=== PATIENT | female | born 1960 | race African-American/Black ===

== ENCOUNTER → 2016-10-25 | Outpatient (CLI) | payer MEDICAID ==
[2016-06-08 13:51] VITALS: BP 123/71
--- NOTE | 2016-10-30 06:21 | MG ---
Examination: Bilateral screening mammogram. Clinical history: Routine screening. Technique: Digital CC and MLO views of both breasts were obtained. Computer aided detection analysis was performed and used during the interpretation. Comparison: None available. Findings: The breasts are composed of scattered fibroglandular densities. Benign-appearing calcifications and vascular calcifications are noted in the breasts bilaterally. There is a 5 mm oval density present in the superior aspect of the left breast in the posterior dept h, possibly representing a small axillary lymph node. Additional imaging evaluation is recommended, with a spot compression magnification view in the MLO projection, a lateral view, an exaggerated CC view of the left breast and a left breast ultrasound. No suspicious mass, area of architectural distortion or suspicious cluster of microcalcifications is noted in the right breast. Impression: 1. Density in the left breast, as described above. BI-RADS category 0 (ZERO) - ASSESSMENT INCOMPLETE; ADDITIONAL IMAGING IS NEEDED. Recommend immediate recall for additional imaging evaluation, as described above. Diagnostic CAD was utilized and reviewed. * 0 (ZERO) - ASSESSMENT INCOMPLETE; ADDITIONAL IMAGING IS NEEDED. * 0C - ASSESSMENT INCOMPLETE, NEEDS ADDITIONAL IMAGING EVALUATION AND/OR PRIOR MAMMOGRAMS FOR COMPAR HÉCTOR. * 1/ (ONE) - NEGATIVE. * 2/II (TWO) - BENIGN FINDINGS. * 3/III (THREE) - PROBABLY BENIGN FINDING; SHORT INTERVAL FOLLOW-UP SUGGESTED. * 4/IV (FOUR) - SUSPICIOUS ABNORMALITY; BIOPSY SHOULD BE CONSIDERED. * 5/V - HIGHLY SUSPICIOUS OF MALIGNANCY; BIOPSY SHOULD BE PERFORMED. * 6/IV - KNOWN BIOPSY PROVEN MALIGNANCY-APPROPRIATE ACTION SHOULD BE TAKEN. A NEGATIVE X-RAY REPORT SHOULD NOT DELAY BIOPSY IF A DOMINANT OR CLINICALLY SUSPICIOUS MASS IS PRESENT; 4 TO 8 PERCENT OF CANCERS ARE NOT IDENTIFIED BY X-RAY. A NEGATIVE REPORT MAY REINFORCE THE CLINICAL IMPRESSION. ADENOSIS AND DENSE BREASTS MAY OBSCURE AN UNDERLYING NEOPLASM. Reported By:
== END ==
LOC: RAD 13:48
PROVIDERS: ATTEND Obstetrics & Gynecology
DX: Z12.31 Encounter for screening mammogram for malignant neoplasm of breast (principal)
CPT/HCPCS: 77067

== ENCOUNTER → 2016-12-26 | Outpatient (CLI) | payer MEDICAID ==
[2016-06-08 13:51] VITALS: BP 123/71
--- NOTE | 2016-12-26 14:54 | US ---
Examination: Unilateral left diagnostic mammogram and left breast ultrasound. Clinical history: Abnormal screening mammogram. Technique: Additional digital images of the left breast were obtained. Targeted left breast ultrasou nd was also obtained evaluating the upper outer aspect of the left breast. Comparison: Baseline screening mammogram dated 10/25/2016. Findings: The left breast is composed of scattered fibroglandular densities. Vascular calcifications are noted in the left breast. There is a persistent small 5 mm oval mass present in the upper outer aspect of the left breast in t he posterior depth, probably representing a small intramammary lymph node. Targeted left breast ultrasound evaluating the upper outer aspect of the left breast reveals a circu mscribed oval hypoechoic mass measuring approximately 6 x 4 mm in size, which has a subtle associate d echogenic area, seen at the 2 o'clock position, correlating with findings on the mammogram, likely representing a small intramammary node. A followup left diagnostic mammogram and left breast ultras ound is recommended in 6 months to ensure stability of this finding. Impression: 1. Probable small benign intramammary lymph node at the 2 o'clock position in the left breast, as de scribed above. BI-RADS category 3/III (THREE) - PROBABLY BENIGN FINDING; SHORT INTERVAL FOLLOW-UP SUGGESTED. Recommend a followup left diagnostic mammogram and left breast ultrasound in 6 months to ensure stab ility of the findings in the left breast. Diagnostic CAD was utilized and reviewed. * 0 (ZERO) - ASSESSMENT INCOMPLETE; ADDITIONAL IMAGING IS NEEDED. * 0C - ASSESSMENT INCOMPLETE, NEEDS ADDITIONAL IMAGING EVALUATION AND/OR PRIOR MAMMOGRAMS FOR COMPAR HÉCTOR. * 1/1 (ONE) - NEGATIVE. * 2/II (TWO) - BENIGN FINDINGS. * 3/III (THREE) - PROBABLY BENIGN FINDING; SHORT INTERVAL FOLLOW-UP SUGGESTED. * 4/IV (FOUR) - SUSPICIOUS ABNORMALITY; BIOPSY SHOULD BE CONSIDERED. * 5/V - HIGHLY SUSPICIOUS OF MALIGNANCY; BIOPSY SHOULD BE PERFORMED. * 6/IV - KNOWN BIOPSY PROVEN MALIGNANCY-APPROPRIATE ACTION SHOULD BE TAKEN. A NEGATIVE X-RAY REPORT SHOULD NOT DELAY BIOPSY IF A DOMINANT OR CLINICALLY SUSPICIOUS MASS IS PRESENT; 4 TO 8 PERCENT OF CANCERS ARE NOT IDENTIFIED BY X-RAY. A NEGATIVE REPORT MAY REINFORCE THE CLINICAL IMPRESSION. ADENOSIS AND DENSE BREASTS MAY OBSCURE AN UNDERLYING NEOPLASM. Reported By:
== END ==
LOC: RAD 13:10
PROVIDERS: ATTEND Obstetrics & Gynecology
DX: R92.8 Other abnormal and inconclusive findings on diagnostic imaging of breast (principal)
CPT/HCPCS: 76642; 77065

== ENCOUNTER → 2017-07-31 | Outpatient (CLI) | payer MEDICAID ==
[2016-06-08 13:51] VITALS: BP 123/71
--- NOTE | 2017-07-31 15:39 | MG ---
HISTORY: Six-month follow-up left breast nodule Left breast digital diagnostic mammography with CAD and left breast ultrasound. Comparison: October 25, 2016 and December 26, 2016 FINDINGS: Mammogram: XCCL, mL, and spot magnification CC and MLO projections of the left breast were obtained. Scattered fibroglandular tissue is seen to be present without significant interval change. No new o r developing suspicious architectural distortion, mass or clustered microcalcifications can be observ ed to suggest malignancy. No skin thickening or nipple retraction is appreciated. No pathological lymphadenopathy can be identified. Benign-appearing calcifications are noted. There is a persistent p artially obscured and partially circumscribed isodense nodule in the upper outer posterior left breas t measuring 3-4 mm on today's exam and measuring 4-5 mm on the prior. Ultrasound: Multiple grayscale images of the 2 o'clock position left breast were obtained. Previously described nodule is not well seen on today's exam. IMPRESSION: NO RADIOGRAPHIC EVIDENCE OF MALIGNANCY. ACR CATEGORY 2 - benign findings. Resume bilateral mammographic screening in September 2017. Diagnostic CAD was utilized and reviewed. * 0 (ZERO) - ASSESSMENT INCOMPLETE; ADDITIONAL IMAGING IS NEEDED. * 1/ (ONE) - NEGATIVE. * 2/II (TWO) - BENIGN FINDINGS. * 3/III (THREE) - PROBABLY BENIGN FINDING; SHORT INTERVAL FOLLOW-UP SUGGESTED. * 4/IV (FOUR) - SUSPICIOUS ABNORMALITY; BIOPSY SHOULD BE CONSIDERED. * 5/V - HIGHLY SUSPICIOUS OF MALIGNANCY; BIOPSY SHOULD BE PERFORMED. A NEGATIVE X-RAY REPORT SHOULD NOT DELAY BIOPSY IF A DOMINANT OR CLINICALLY SUSPICIOUS MASS IS PRESENT; 4 TO 8 PERCENT OF CANCERS ARE NOT IDENTIFIED BY X-RAY. A NEGA TIVE REPORT MAY REINFORCE THE CLINICAL IMPRESSION. ADENOSIS AND DENSE BREASTS MAY OBSCURE AN UNDERLY ING NEOPLASM. Reported By:
== END ==
LOC: RAD 13:53
PROVIDERS: ATTEND Obstetrics & Gynecology
DX: R92.8 Other abnormal and inconclusive findings on diagnostic imaging of breast (principal)
CPT/HCPCS: 76642; 77065

== ENCOUNTER → 2017-10-01 | Outpatient (CLI) | payer MEDICAID ==
[2016-06-08 13:51] VITALS: BP 123/71
--- NOTE | 2017-10-01 15:52 | VAS ---
History: Left lower leg pain Study: Ultrasound of the deep veins of the left lower extremity, with Doppler Comparison: None Findings: The deep veins of the left lower extremity are imaged from the common femoral vein to the p opliteal vein. There is good compression and augmentation and color Doppler blood flow. Impression: No evidence for deep venous thrombosis Reported By:
== END ==
LOC: RAD 14:06
PROVIDERS: ATTEND Nurse Practitioner Family
DX: M79.662 Pain in left lower leg (principal)
CPT/HCPCS: 93971